=== PATIENT | female | born 1955 | race Caucasian/White ===

== ENCOUNTER 2023-01-31 13:49 | Observation (INO) | payer MEDICARE, OTHER ==
[2023-01-31] MEDS ORDERED: Ondansetron PF 4 MG/2 ML Vial IVP PRN (15:03)
[2023-01-31] MEDS ORDERED: Nitroglycerin 0.4 MG TAB (25 Tab Bottle) SL PRN (15:03)
[2023-01-31] MEDS ORDERED: Guaifenesin DM 100-10/5 ML UDCUP PO PRN (15:03)
[2023-01-31] MEDS ORDERED: Acetaminophen 325 MG TAB PO PRN (15:03)
[2023-01-31] MEDS ORDERED: Ondansetron ODT 4 MG TAB PO PRN (15:03)
[2023-01-31] MEDS ORDERED: Acetaminophen 650 MG Suppository PR PRN (15:03)
[2023-01-31] MEDS ORDERED: Senokot S 8.6-50 MG TAB PO PRN (15:03)
[2023-01-31 15:55] LABS: Troponin I Less than 0.010 ng/mL (< 0.028)
[2023-01-31 18:28] VITALS: BMI 23.6
[2023-01-31 18:33] LABS: Troponin I Less than 0.010 ng/mL (< 0.028)
[2023-01-31] MEDS ORDERED: Atorvastatin Calcium 40 MG TAB PO SCH (21:00)
[2023-01-31] MEDS ORDERED: Loratadine 10 MG TAB PO SCH (21:00)
[2023-01-31] MEDS ORDERED: dilTIAZem SR 90 MG CAP PO SCH (21:00)
[2023-01-31] MEDS ORDERED: Famotidine 20 MG TAB PO SCH ×3 (21:00→21:15)
[2023-02-01 04:47] LABS: Anion Gap 14 mmol/L (10-20); BUN (Urea Nitrogen) 15 mg/dL (9.8-20.1); Calc. Creatinine Clearance 51 mL/min (70-130); Calcium 8.9 mg/dL (7.8-10.44); Carbon Dioxide 26 mmol/L (23-31); Chloride 104 mmol/L (98-107); Estimated GFR 61; Glucose 91 mg/dL (80-115); Potassium 3.3 mmol/L (3.5-5.1); Sodium 141 mmol/L (136-145)
[2023-02-01 04:49] LABS: #Basophils 0.1 10x3/uL (0.0-0.2); #Eosinphils 0.5 10x3/uL (0.0-0.5); #Monocytes 0.7 10x3/uL (0.0-1.1); %Basophils 1.3 % (0.0-2.0); %Eosinophils 8.7 % (0.0-6.0); %Lymphocytes 21.7 % (18.0-47.0); %Monocytes 12.2 % (0.0-10.0); %Neutrophils 54.8 % (40.0-75.0); Hemoglobin 13.3 g/dL (12.0-15.5); Mean Corpuscular HGB CONC 33.3 g/dL (32.0-36.0); Mean Corpuscular Hemoglobin 28.7 pg (27.0-33.0); Mean Corpuscular Volume 86.2 fl (81.6-98.3); Mean Platelet Volume 8.9 fl (7.4-10.4); Platelet Count 266 10x3/uL (150-450); RBC Distribution Width 12.7 % (11.5-14.5); Red Blood Cell (RBC) Count 4.64 10x6/uL (3.90-5.03); White Blood Cell (WBC) Count 5.4 10x3/uL (3.5-10.5)
[2023-02-01] MEDS ORDERED: Potassium Chloride 20 MEQ TAB PO SCH (08:15)
[2023-02-01] MEDS ORDERED: dilTIAZem CD 120 MG CAP PO SCH (09:00)
[2023-02-01] MEDS ORDERED: Aspirin Chewable 81 MG TAB PO SCH (09:00)
[2023-02-01] MEDS ORDERED: Montelukast Sodium 4 mg Chewable Tablet PO SCH (09:00)
[2023-02-01] MEDS ORDERED: Famotidine 20 MG TAB PO SCH (09:00)
[2023-02-01] MEDS ORDERED: Hydrochlorothiazide 25 MG TAB PO SCH (09:00)
[2023-02-01] MEDS ORDERED: Sertraline 25 MG TAB PO SCH (11:45)
[2023-02-01 12:49] VITALS: BP 112/64; TEMP 97.9
[2023-02-02] MEDS ORDERED: Sertraline 25 MG TAB PO SCH (09:00)
== END 2023-02-01 15:35 | disposition home or self-care (01) ==
LOC: CSHTELE 14:26
PROVIDERS: ADMIT Internal Medicine; ATTEND Internal Medicine
DX: R07.89 Other chest pain (principal); E78.5 Hyperlipidemia, unspecified; K21.9 Gastro-esophageal reflux disease without esophagitis; E87.6 Hypokalemia; I10 Essential (primary) hypertension; Z90.710 Acquired absence of both cervix and uterus; Z90.49 Acquired absence of other specified parts of digestive tract; Z87.891 Personal history of nicotine dependence; Z88.1 Allergy status to other antibiotic agents; Z88.2 Allergy status to sulfonamides; Z79.82 Long term (current) use of aspirin; Z79.899 Other long term (current) drug therapy
CPT/HCPCS: 36415; 71045; 80048; 80053; 83880; 84484; 85025; 93005; 93306; 94760; 94762; J1650

== ENCOUNTER 2023-02-10 21:09 | Observation (INO) | payer MEDICARE, OTHER ==
[2023-02-10 22:03] LABS: Troponin I Less than 0.010 ng/mL (< 0.028)
[2023-02-10] MEDS ORDERED: Aspirin 325 mg Enteric Coated Tablet ONE (22:13)
[2023-02-10 22:18] LABS: #Basophils 0.1 10x3/uL (0.0-0.2); #Eosinphils 0.3 10x3/uL (0.0-0.5); #Monocytes 0.8 10x3/uL (0.0-1.1); #Neutrophils 5.7 10x3/uL (1.5-8.4); %Eosinophils 3.4 % (0.0-6.0); %Lymphocytes 14.7 % (18.0-47.0); %Neutrophils 70.5 % (40.0-75.0); Hematocrit 41.3 % (34.9-44.5); Hemoglobin 13.7 g/dL (12.0-15.5); Mean Corpuscular HGB CONC 33.2 g/dL (32.0-36.0); Mean Corpuscular Hemoglobin 28.6 pg (27.0-33.0); Mean Corpuscular Volume 86.2 fl (81.6-98.3); Mean Platelet Volume 8.8 fl (7.4-10.4); Platelet Count 228 10x3/uL (150-450); RBC Distribution Width 12.8 % (11.5-14.5); Red Blood Cell (RBC) Count 4.79 10x6/uL (3.90-5.03)
[2023-02-10] MEDS ORDERED: Calcium Carbonate 500 MG ChewTAB PO PRN (23:16)
[2023-02-10] MEDS ORDERED: Acetaminophen 325 MG TAB PO PRN (23:16)
[2023-02-10] MEDS ORDERED: Guaifenesin DM 100-10/5 ML UDCUP PO PRN (23:16)
[2023-02-10] MEDS ORDERED: Senokot S 8.6-50 MG TAB PO PRN (23:16)
[2023-02-10] MEDS ORDERED: Ondansetron PF 4 MG/2 ML Vial IVP PRN (23:16)
[2023-02-10] MEDS ORDERED: Zolpidem Tartrate 5 MG TAB PO PRN (23:16)
[2023-02-10] MEDS ORDERED: Nitroglycerin 0.4 MG TAB (25 Tab Bottle) SL PRN (23:18)
[2023-02-10] MEDS ORDERED: Mag-Al Plus 1200 MG/1200 MG/120 MG/30 ML UDCUP PO SCH (23:45)
[2023-02-10] MEDS ORDERED: Famotidine/PF 20 mg/2ml Vial SLOW IVP SCH (23:45)
[2023-02-10 23:58] VITALS: BMI 23.4
[2023-02-11 01:39] LABS: Anion Gap 13 mmol/L (10-20); BUN (Urea Nitrogen) 12 mg/dL (9.8-20.1); Calc. Creatinine Clearance 54 mL/min (70-130); Calcium 9.6 mg/dL (7.8-10.44); Carbon Dioxide 25 mmol/L (23-31); Chloride 105 mmol/L (98-107); Estimated GFR 66; Glucose 112 mg/dL (80-115); Potassium 3.6 mmol/L (3.5-5.1); Sodium 139 mmol/L (136-145)
[2023-02-11 01:47] LABS: Troponin I Less than 0.010 ng/mL (< 0.028)
[2023-02-11 06:45] LABS: Troponin I Less than 0.010 ng/mL (< 0.028)
[2023-02-11 08:47] VITALS: BP 125/68; TEMP 97.4
[2023-02-11] MEDS ORDERED: Famotidine 20 MG TAB PO SCH ×2 (09:00)
[2023-02-11] MEDS ORDERED: Aspirin 81 mg Enteric Coated Tablet PO SCH (09:00)
[2023-02-11] MEDS ORDERED: Montelukast Sodium 4 mg Chewable Tablet PO SCH (09:00)
[2023-02-11] MEDS ORDERED: Loratadine 10 MG TAB PO SCH (21:00)
[2023-02-11] MEDS ORDERED: Atorvastatin Calcium 40 MG TAB PO SCH (21:00)
[2023-02-12] MEDS ORDERED: dilTIAZem CD 120 MG CAP PO SCH (09:00)
== END 2023-02-11 10:39 | disposition home or self-care (01) ==
LOC: CSHERS 21:09 → CSHTELE 23:16
PROVIDERS: ADMIT Student in an Organized Health Care Education/Training Program; ATTEND Internal Medicine
DX: R07.9 Chest pain, unspecified (principal); I12.9 Hypertensive chronic kidney disease with stage 1 through stage 4 chronic kidney disease, or unspecified chronic kidney disease; N18.2 Chronic kidney disease, stage 2 (mild); E78.5 Hyperlipidemia, unspecified; K21.9 Gastro-esophageal reflux disease without esophagitis; K58.9 Irritable bowel syndrome, unspecified; G43.909 Migraine, unspecified, not intractable, without status migrainosus; Z90.49 Acquired absence of other specified parts of digestive tract; Z90.710 Acquired absence of both cervix and uterus; Z88.1 Allergy status to other antibiotic agents; Z88.2 Allergy status to sulfonamides; Z79.82 Long term (current) use of aspirin; Z79.899 Other long term (current) drug therapy; Z86.16 Personal history of COVID-19
CPT/HCPCS: 71045; 80048; 84484 ×3; 85025; 85379; 93005; 96374; 99285; G0378 ×2; 36415; S0028

== ENCOUNTER 2025-01-16 08:03 | Outpatient (CLI) | payer MEDICARE, OTHER | END 2025-01-16 08:04 | disposition home or self-care (01) | LOC: CSHWCC 08:03 | PROVIDERS: ATTEND Nurse Practitioner Family | DX: T24.211D Burn of second degree of right thigh, subsequent encounter (principal); T25.222D Burn of second degree of left foot, subsequent encounter; T25.221D Burn of second degree of right foot, subsequent encounter; T25.212D Burn of second degree of left ankle, subsequent encounter | CPT/HCPCS: 16020; 16025; G0463; 99212 ==

== ENCOUNTER 2025-01-23 15:44 | Outpatient (CLI) | payer MEDICARE, OTHER | END 2025-01-23 15:45 | disposition home or self-care (01) | LOC: CSHWCC 15:44 | PROVIDERS: ATTEND Nurse Practitioner Family | DX: T24.211D Burn of second degree of right thigh, subsequent encounter (principal); T25.222D Burn of second degree of left foot, subsequent encounter; T25.221D Burn of second degree of right foot, subsequent encounter; T25.212D Burn of second degree of left ankle, subsequent encounter | CPT/HCPCS: 16020 ==